=== PATIENT | male | born 1990 | race Caucasian/White ===

== ENCOUNTER 2020-07-19 22:04 | Emergency (ER) | payer OTHER ==
[~2020-07-19] VITALS: Ht 177.8 cm; Wt 82.0 kg
[2020-07-19] MEDS ORDERED: PLEASE ENTER ALLERGIES MC SCH (22:30)
[2020-07-19] MEDS ORDERED: ACETAMINOPHEN 500 MG TABLET PO ONE (22:30)
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
--- NOTE | 2020-07-19 22:34 | NUR ---
PT TO CT AT THIS TIME
--- NOTE | 2020-07-19 22:49 | NUR ---
ICE APPLIED TO AREA, DR MARTINEZ AT BEDSIDE FOR ASSESSMENT
[2020-07-19] MEDS ORDERED: ACETAMINOPHEN 500 MG TABLET ONE (22:58)
--- NOTE | 2020-07-19 23:02 | NUR ---
PT MEDICATED PER [facility] FOR PAIN AT THIS TIME
--- NOTE | 2020-07-19 23:15 | NUR ---
PT IN RADIOLOGY
--- NOTE | 2020-07-19 23:52 | NUR ---
PT RESTING ON ALIX HANSON, NO NEEDS AT THIS TIME AWAITING RAD READS
[2020-07-20] MEDS ORDERED: HYDROcodone/APAP 5/325 TABLET ONE (00:25)
[2020-07-20] MEDS ORDERED: HYDROcodone/APAP 5/325 TABLET PO ONE (00:30)
[2020-07-20] MEDS ORDERED: NEOSPORIN OINT. PKT 1 PACKET ONE (00:35)
[2020-07-20 00:53] VITALS: BP 138/73
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
--- NOTE | 2020-07-20 01:05 | NUR ---
REPORT TO [facility] TRANSFER OF CARE AT THIS TIME
== END 2020-07-20 01:07 | disposition home or self-care (01) ==
LOC: ED 22:15
DX: S06.0X9A Concussion with loss of consciousness of unspecified duration, initial encounter (principal); S20.219A Contusion of unspecified front wall of thorax, initial encounter; S00.03XA Contusion of scalp, initial encounter; G89.11 Acute pain due to trauma; M25.512 Pain in left shoulder; M54.6 Pain in thoracic spine; M54.2 Cervicalgia; R55 Syncope and collapse; Y04.8XXA Assault by other bodily force, initial encounter; Y93.89 Activity, other specified; Y92.89 Other specified places as the place of occurrence of the external cause; Y99.8 Other external cause status
CPT/HCPCS: 70450; 70486; 71045; 72072; 72125; 99285